=== PATIENT | male | born 1960 | race Caucasian/White ===

== ENCOUNTER 2024-08-22 15:19 | Emergency (ER) | payer MEDICAID ==
[~2024-08-22] VITALS: Ht 180.3 cm; Wt 83.9 kg
[2024-08-22 15:28] VITALS: BP 115/71; PULSE 90; RESP 20; TEMP 98.1; O2SAT 90
[2024-08-22 16:20] VITALS: BP 131/81; PULSE 84; RESP 19; TEMP 98.1; O2SAT 90
[2024-08-22] MEDS: NACL 0.9% 1,000 ML IV ONE (16:58)
[2024-08-22 17:08] LABS: BASOPHILS # (AUTO) 0.2 K/uL (0.00-0.22); BASOPHILS % (AUTO) 1.5 % (0.0-2.0); EOSINOPHILS # (AUTO) 0.3 K/uL (0-0.4); EOSINOPHILS % (AUTO) 2.8 % (0.0-4.0); HEMATOCRIT 50.2 % (36-52); HEMOGLOBIN 16.8 g/dL (12.0-18.0); LYMPHOCYTES # (AUTO) 2.6 K/uL (2.0-11.5); LYMPHOCYTES % (AUTO) 21.1 % (20.5-51.1); MEAN CORPUSCULAR HEMOGLOBIN 30 pg (27-31); MEAN CORPUSCULAR HGB CONC 34 g/dL (33-37); MEAN CORPUSCULAR VOLUME 87.9 fL (80-94); NEUTROPHILS # (AUTO) 8.1 K/uL (1.8-7.7); NEUTROPHILS % (AUTO) 66.6 % (42.2-75.2); PLATELET COUNT (AUTO) 194 K/uL (140-450); RED BLOOD CELL COUNT(AUTO) 5.71 MIL/uL (4.20-6.10); RED CELL DISTRIBUTION WIDTH 13.6 % (11.6-13.7); WHITE BLOOD COUNT (AUTO) 12.1 K/uL (4.8-10.8)
[2024-08-22 17:24] LABS: ALBUMIN 3.4 g/dL (3.4-5.0); ANION GAP 10.9 (8-16); CALCIUM 8.8 mg/dL (8.5-10.1); CARBON DIOXIDE 28.9 mmol/L (21-32); CREATININE 0.9 mg/dL (0.6-1.3); POTASSIUM 4.8 mmol/L (3.5-5.1); TOTAL BILIRUBIN 0.6 mg/dL (0.0-1.0); TOTAL PROTEIN, SERUM 7.4 g/dL (6.4-8.2)
[2024-08-22 17:43] LABS: FLU A ANTIGEN NEGATIVE (NEGATIVE); FLU B ANTIGEN NEGATIVE (NEGATIVE)
== END 2024-08-22 17:51 | disposition home or self-care (01) ==
LOC: MED 15:19
DX: M79.10 Myalgia, unspecified site (principal); R19.7 Diarrhea, unspecified; R42 Dizziness and giddiness; F15.90 Other stimulant use, unspecified, uncomplicated; F17.200 Nicotine dependence, unspecified, uncomplicated; I10 Essential (primary) hypertension; Z20.822 Contact with and (suspected) exposure to COVID-19; Z98.890 Other specified postprocedural states; Z88.8 Allergy status to other drugs, medicaments and biological substances
CPT/HCPCS: 36415; 80053; 80076; 82550; 82553; 85025; 87426; 87804; 96360; 99283; J7030